=== PATIENT | male | born 1965 | race Hispanic/Latino ===

== ENCOUNTER 2018-03-15 08:21 | Observation (INO) | payer OTHER ==
--- NOTE | 2018-03-15 09:10 | RAD REPORT ---
EXAM DESCRIPTION: RAD - Chest Single View - 03/15/2018 9:02 am CLINICAL HISTORY: CHEST PAIN Chest pain. COMPARISON: No comparisons FINDINGS: Portable technique limits examination quality. The lungs are grossly clear. The heart is normal in size. No displaced fractures. IMPRESSION: No acute intrathoracic process suspected.
[2018-03-15 09:14] LABS: Absolute Lymphocytes (CBC) 1.9 K/uL (0.7-4.9); Absolute Monocytes 0.7 K/uL (0.1-1.3); Absolute Neutrophil 4.8 K/uL (1.8-8.0); Basophils % 1.1 % (0-1.3); Eosinophils % 3.4 % (0-4.4); Hematocrit 50.7 % (39.6-49.0); Lymphocytes % 24.3 % (15.3-44.8); MPV 8.4 fL (7.6-11.3); Monocytes % 9.3 % (3.3-12.3); RBC Red Blood Cell Count 5.78 M/uL (4.33-5.43)
[2018-03-15 09:17] LABS: BUN Blood Urea Nitrogen 12 mg/dL (7-18); Bicarbonate 28 mmol/L (21-32); Glucose Level 102 mg/dL (74-106); NT PRO-BNP 14 pg/mL (<125); Potassium 4.1 mmol/L (3.5-5.1); Sodium Level 140 mmol/L (136-145); Troponin (Emerg Dept Use Only) < 0.02 ng/mL (0.0-0.045)
--- NOTE | 2018-03-15 09:24 | EKG ---
Test Date: 2018-03-15 Test Time: 08:34:40 Can Technician: ALESHA MEASUREMENT RESULTS: Intervals: Rate: 69 RI: 136 QRSD: 90 QT: 372 QTc: 398 [place]: P: 29 RI: 136 QRS: 42 T: 46 INTERPRETIVE STATEMENTS: Normal sinus rhythm Normal ECG No previous ECG available for comparison Electronically Signed On 03-15-18 09:23:46 MARKETING SERVICES COORDINATOR by Thom Licona
--- NOTE | 2018-03-15 10:02 | EDPHYS ---
Physician Documentation [facility] Name: Geoffrey Shrestha Age: 52 yrs Sex: Male : 1965 Arrival Date: 03/15/2018 Time: 08:22 Bed 14 Private MD: ED Physician Nathaniel Darby HPI: 03/15 08:58 This 52 yrs old Male presents to ER via Wheelchair with complaints of Chest rn Pain. 08:58 The patient or guardian reports chest pain that is located primarily in the substernal rn area. Onset: at 07:00. The pain radiates to both arms. Associated signs and symptoms: Pertinent positives: None. Pertinent negatives: abdominal pain, cough, diaphoresis, dizziness, lightheadedness, nausea, near syncope, palpitations, shortness of breath, syncope, vomiting. The chest pain is described as a heaviness, a pressure, squeezing. Duration: The patient or guardian reports a single episode, that is now resolved. Modifying factors: The symptoms are alleviated by nothing. the symptoms are aggravated by activity. Severity of pain: At its worst the pain was moderate in the emergency department the pain has resolved. The patient has experienced similar episodes in the past. REports chest pressure with exertion, relieved with rest, no fever/cough/trauma. Now resolved, reports multiple episodes in past that resolve with rest. . Historical: - Allergies: 08:29 No Known Allergies; sg - Home Meds: 08:29 Flomax Oral for Symptomatic Benign Prostatic Hyperplasia [Active]; sg - PMHx: 08:29 None; sg - PSHx: 08:29 achilles tendon repair; sg - Immunization history:: Adult Immunizations up to date. - Social history:: Smoking status: Patient/guardian denies using tobacco. - Ebola Screening: : Patient negative for fever greater than or equal to 101.5 degrees Fahrenheit, and additional compatible Ebola Virus Disease symptoms Patient denies exposure to infectious person Patient denies travel to an Ebola-affected area in the 21 days before illness onset No symptoms or risks identified at this time. - Family history:: not pertinent. - Hospitalizations: : No recent hospitalization is reported. ROS: 08:58 Constitutional: Negative for fever, chills, and weight loss, Eyes: Negative for injury, rn pain, redness, and discharge, Neck: Negative for injury, pain, and swelling, Cardiovascular: Negative for edema Respiratory: Negative for shortness of breath, cough, wheezing, and pleuritic chest pain, Abdomen/GI: Negative for abdominal pain, nausea, vomiting, diarrhea, and constipation, MS/Extremity: Negative for injury and deformity, Skin: Negative for injury, rash, and discoloration, Neuro: Negative for headache, weakness, numbness, tingling, and seizure. Exam: 08:58 Constitutional: This is a well developed, well nourished patient who is awake, alert, rn and in no acute distress. Head/Face: Normocephalic, atraumatic. Eyes: Pupils equal round and reactive to light, extra-ocular motions intact. Lids and lashes normal. Conjunctiva and sclera are non-icteric and not injected. Cornea within normal limits. Periorbital areas with no swelling, redness, or edema. Cardiovascular: Regular rate and rhythm with a normal S1 and S2. No JVD. No pulse deficits. Respiratory: Lungs have equal breath sounds bilaterally, clear to auscultation. No increased work of breathing, no retractions or nasal flaring. Abdomen/GI: soft, non-tender Skin: Warm, dry with normal turgor. Normal color with no rashes, no lesions, and no evidence of cellulitis. MS/ Extremity: Pulses equal, no cyanosis. Neurovascular intact. Full, normal range of motion. Equal circumference. Neuro: Awake and alert, GCS 15, oriented to person, place, time, and situation. Cranial nerves II-XII grossly intact. Motor strength 5/5 in all extremities. Sensory grossly intact. 09:03 ECG was reviewed by the Attending Physician. rn Vital Signs: 08:29 BP 126 / 93; Pulse 82; Resp 18; Temp 98.4; Pulse Ox 100% on R/A; Weight 109.77 kg (R); sg Height 5 ft. 10 in. (177.80 cm); Pain 0/10; 09:55 BP 124 / 84; Pulse 76; Resp 18; Pulse Ox 99% ; Pain 0/10; ph 11:11 BP 128 / 76; Pulse 74; Resp 18; Temp 98.0; Pulse Ox 100% on R/A; Pain 0/10; ph 08:29 Body Mass Index 34.72 (109.77 kg, 177.80 cm) sg MDM: 08:35 Patient medically screened. rn 09:58 Differential diagnosis: acute myocardial infarction, acute pericarditis, coronary rn artery disease costochondritis, gastroesophageal reflux disease (GERD), pericarditis, pleurisy, stable angina, unstable angina. The patient was not given aspirin in the Emergency Department. Patient reports taking aspirin within the past 24 hours. Data reviewed: vital signs, nurses notes, lab test result(s), EKG, radiologic studies, plain films, and as a result, I will admit patient. Counseling: I had a detailed discussion with the patient and/or guardian regarding: the historical points, exam findings, and any diagnostic results supporting the discharge/admit diagnosis, lab results, radiology results, the need for further work-up and treatment in the hospital. Admission orders: after a detailed discussion of the patient's condition and case, the admit orders are written by me. ED course: Chest pain free, exertional chest pain, will admit for cardiac w/u. Dr. Vincent notified. . 03/15 08:46 Order name: Basic Metabolic Panel; Complete Time: 09:19 rn 03/15 08:46 Order name: CBC with Diff; Complete Time: 09:19 rn 03/15 08:46 Order name: NT PRO-BNP; Complete Time: 09:19 rn 03/15 08:46 Order name: Troponin (emerg Dept Use Only); Complete Time: 09:19 rn 03/15 10:27 Order name: Troponin I EDID 03/15 10:27 Order name: Troponin I EDID 03/15 08:46 Order name: XRAY Chest (1 view); Complete Time: 09:45 rn 03/15 08:46 Order name: EKG; Complete Time: 08:47 rn 03/15 08:46 Order name: Cardiac monitoring; Complete Time: 09:09 rn 03/15 08:46 Order name: EKG - Nurse/Tech; Complete Time: 08:50 rn 03/15 08:46 Order name: IV Saline Lock; Complete Time: 08:50 rn 03/15 10:27 Order name: Echo with Doppler EDID 03/15 10:27 Order name: Troponin I EDID 03/15 10:27 Order name: Troponin I EDID 03/15 08:46 Order name: Labs collected and sent; Complete Time: 08:50 rn 03/15 08:46 Order name: O2 Per Protocol; Complete Time: 08:50 rn 03/15 08:46 Order name: O2 Sat Monitoring; Complete Time: 08:50 rn EC:03 Rate is 69 beats/min. Rhythm is regular. QRS [place] is Normal. [place] interval is normal. QRS rn interval is normal. QT interval is normal. No Q waves. T waves are Normal. No ST changes noted. Clinical impression: Normal ECG. Interpreted by me. Administered Medications: No medications were administered Disposition: 03/15/18 10:02 Hospitalization ordered by Tracy Vincent for Observation. Preliminary diagnosis is Chest pain, unspecified. - Bed requested for Telemetry/MedSurg (observation). - Status is Observation. ph - Condition is Stable. - Problem is new. - Symptoms have improved. UTI on Admission? No Signatures: Dispatcher [employer] EDMS Lilliam Barreto RN RN dw Gay, Steven, RN RN Nathaniel Darby MD MD rn Hall, Patricia, RN RN ph Corrections: (The following items were deleted from the chart) 11:01 10:02 Hospitalization Ordered by Tracy Vincent MD for Observation. Preliminary dw diagnosis is Chest pain, unspecified. Bed requested for Telemetry/MedSurg (observation). Status is Observation. Condition is Stable. Problem is new. Symptoms have improved. UTI on Admission? No. rn 11:45 11:01 03/15/2018 10:02 Hospitalization Ordered by Tracy Vincent MD for Observation. ph Preliminary diagnosis is Chest pain, unspecified. Bed requested for Telemetry/MedSurg (observation). Status is Observation. Condition is Stable. Problem is new. Symptoms have improved. UTI on Admission? No. dw
--- NOTE | 2018-03-15 10:02 | ER ---
Nurse's Notes [facility] Name: Geoffrey Shrestha Age: 52 yrs Sex: Male : 1965 Arrival Date: 03/15/2018 Time: 08:22 Bed 14 Private MD: Diagnosis: Chest pain, unspecified Presentation: 03/15 08:26 Presenting complaint: Patient states: This morning at 0700 was at work and developed sg crushing CP, reports the pain is lessened when he sits down to rest, then increases with the level of activity. Report the [facility] nurse gave PO asa 325 at 0740 this morning before sending him here to the ED to get evaluated. Transition of care: patient was not received from another setting of care. Onset of symptoms was March 15, 2018. Risk Assessment: Do you want to hurt yourself or someone else? Patient reports no desire to harm self or others. Initial Sepsis Screen: Does the patient meet any 2 criteria? No. Patient's initial sepsis screen is negative. Does the patient have a suspected source of infection? No. Patient's initial sepsis screen is negative. Care prior to arrival: Medication(s) given: ASA, 325 mg, x 1. 08:26 Method Of Arrival: Wheelchair sg 08:26 Acuity: SAKINA 3 sg Historical: - Allergies: 08:29 No Known Allergies; sg - Home Meds: 08:29 Flomax Oral for Symptomatic Benign Prostatic Hyperplasia [Active]; sg - PMHx: 08:29 None; sg - PSHx: 08:29 achilles tendon repair; sg - Immunization history:: Adult Immunizations up to date. - Social history:: Smoking status: Patient/guardian denies using tobacco. - Ebola Screening: : Patient negative for fever greater than or equal to 101.5 degrees Fahrenheit, and additional compatible Ebola Virus Disease symptoms Patient denies exposure to infectious person Patient denies travel to an Ebola-affected area in the 21 days before illness onset No symptoms or risks identified at this time. - Family history:: not pertinent. - Hospitalizations: : No recent hospitalization is reported. Screenin:39 Abuse screen: Denies threats or abuse. Nutritional screening: No deficits noted. tw2 Tuberculosis screening: No symptoms or risk factors identified. Fall Risk None identified. Assessment: 08:45 General: Appears in no apparent distress. comfortable, well groomed, Behavior is calm, ph cooperative, appropriate for age, Denies fever, feeling ill. 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 Neuro: Level of Consciousness is awake, alert, obeys commands, Oriented to person, place, time, situation. Cardiovascular: Reports chest pain, palpitations, Denies nausea, shortness of breath, vomiting, Capillary refill < 3 seconds Patient's skin is warm and dry. Rhythm is sinus rhythm Chest pain quality is pressure, squeezing, is located in left anterior chest wall radiates to left back is aggravated by activity, is alleviated by rest, Pt denies pain at this time. Respiratory: Airway is patent Respiratory effort is even, unlabored, Respiratory pattern is regular, symmetrical. Derm: Skin is intact, is healthy with good turgor, Skin is pink, warm \T\ dry. Musculoskeletal: Circulation, motion, and sensation intact. Range of motion: intact in all extremities. 10:00 Reassessment: Patient appears in no apparent distress at this time. Patient and/or ph family updated on plan of care and expected duration. Pain level reassessed. Patient is alert, oriented x 3, equal unlabored respirations, skin warm/dry/pink. Pt resting quietly, awaiting lab and radiology results, VSS. 11:35 Reassessment: Patient appears in no apparent distress at this time. Patient and/or ph family updated on plan of care and expected duration. Pain level reassessed. Patient is alert, oriented x 3, equal unlabored respirations, skin warm/dry/pink. Report called to second floor, pt taken for stress test and will be taken to inpatient room when testing complete Patient denies pain at this time. Vital Signs: 08:29 BP 126 / 93; Pulse 82; Resp 18; Temp 98.4; Pulse Ox 100% on R/A; Weight 109.77 kg (R); sg Height 5 ft. 10 in. (177.80 cm); Pain 0/10; 09:55 BP 124 / 84; Pulse 76; Resp 18; Pulse Ox 99% ; Pain 0/10; ph 11:11 BP 128 / 76; Pulse 74; Resp 18; Temp 98.0; Pulse Ox 100% on R/A; Pain 0/10; ph 08:29 Body Mass Index 34.72 (109.77 kg, 177.80 cm) ED Course: 08:22 Patient arrived in ED. as 08:28 Triage completed. sg 08:29 Arm band placed on. sg 08:33 Placed in gown. Bed in low position. Call light in reach. secured entrance monitor on. Pulse ox tw2 on. NIBP on. 08:35 Nathaniel Darby MD is Attending Physician. rn 08:36 Citlali Stanford RN is Primary Nurse. ph 08:40 EKG done, by electric meter technician. reviewed by Nathaniel Darby MD. at1 08:40 Patient maintains SpO2 saturation greater than 95% on room air. tw2 08:55 Inserted saline lock: 22 gauge in left antecubital area, using aseptic technique. Blood tw2 collected. 08:59 X-ray completed. Portable x-ray completed in exam room. Patient tolerated procedure sw well. 09:05 XRAY Chest (1 view) In Process Unspecified. EDMS 10:02 Tracy Vincent MD is Hospitalizing Provider. rn 11:28 No provider procedures requiring assistance completed. Patient admitted, IV remains in ph place. Administered Medications: No medications were administered Outcome: 10:02 Decision to Hospitalize by Provider. rn 11:44 Admitted to Tele accompanied by tech, family with patient, via wheelchair. ph 11:44 Condition: stable 11:45 Patient left the ED. ph Signatures: Dispatcher [employer] EDMS Brock Cameron, RN RN Lidya Lopez Roman, MD MD rn Gonzales, Amanda, dependency case manager EKG Tat1 Citlali Stanford, RN RN Dania Tobias Tara, RN RN tw2
[2018-03-15] MEDS ORDERED: ACETAMINOPHEN 500 MG TAB PO PRN (11:59)
[2018-03-15] MEDS ORDERED: REGADENOSON 0.4 MG/5 ML SYR IV ONE (12:05)
--- NOTE | 2018-03-15 13:35 | RAD REPORT ---
EXAM DESCRIPTION: NM - Rest Stress Cardiac Imaging - 03/15/2018 1:29 pm CLINICAL HISTORY: CP Chest pain. COMPARISON: No comparisons TECHNIQUE: The patient was administered approximately 10mCi of Tc 99m Sestamibi prior to resting SPE CT imaging of the heart. The patient was then administered approximately 30 mCi of Tc 99m Sestamibi f ollowing exercise or pharmacologic stress. Multiplanar SPECT images were reviewed. FINDINGS: No stress induced ischemic defect is seen to suggest stress induced ischemia. No fixed def ect is seen to suggest hibernating myocardium or scarred myocardium. The end diastolic volume is 141 ml, the end systolic volume is 71 ml, and the ejection fraction is 50 %. IMPRESSION: No stress induced ischemia.
--- NOTE | 2018-03-15 14:36 | P.HP ---
Certification for Inpatient Patient admitted to: Observation With expected LOS: <2 Midnights Patient will require the following post-hospital care: None Practitioner: I am a practitioner with admitting privileges, knowledge of patient current condition, hospital course, and medical plan of care. Services: Services provided to patient in accordance with Admission requirements found in Title 42 Section 412.3 of the Code of Federal Regulations Patient History Date of Service: 03/15/18 History of Present Illness: 52-year-old male with no significant past medical history who presented to the ED complaining of having chest pain that started this morning while he was walking. Patient stated that he has had similar episodes in the past were he noticed that he was having palpitations and then started having squeezing chest pain. At that time he would go to his clinic at work his blood pressure would is normal and heart rate was normal and thus he never followed up with anybody. Today however he stated that the chest pain was back and squeezing in nature and thus he decided to come to the ER to get a further checked out. Patient is positive for smoking for over 30 years along with all 4-5 beers a day. No other complaints to offer at this time. Denies having any shortness of breath abdominal pain nausea vomiting or any other associated symptoms. Allergies No Known Allergies Allergy (Unverified 03/15/18 11:58) Home Medications: Tamsulosin [Flomax*] 0.4 mg PO DAILY 03/15/18 - Past Medical/Surgical History Has patient received pneumonia vaccine in the past: Yes Diabetic: No Past Medical History: Reviewed- Non-Contributory Past Surgical History: Reviewed- Non-Contributory -: achiles tendon sx - Family History Family History: Reviewed- Non-Contributory - Family History Father History Unknown: Yes Mother -: Other (see notes) Notes: car accident - Social History Smoking Status: Current some day smoker Counseled patient to stop smoking for: more than 10 minutes Smoking therapy provided: Yes Patient receptive to therapy: Yes Alcohol use: Yes CD- Drugs: No Caffeine use: Yes Place of Residence: Home Review of Systems 10-point ROS is otherwise unremarkable Physical Examination - Vital Signs Temperature: 98.0 F Blood Pressure: 128/76 Pulse: 74 Respirations: 18 - Physical Exam General: Alert, In no apparent distress HEENT: Atraumatic, PERRLA, Mucous membr. moist/pink, EOMI, Sclerae nonicteric Neck: Supple, 2+ carotid pulse no bruit, No LAD, Without JVD or thyroid abnormality Respiratory: Clear to auscultation bilaterally, Normal air movement Cardiovascular: Regular rate/rhythm, Normal S1 S2 Gastrointestinal: Normal bowel sounds, No tenderness Musculoskeletal: No tenderness Integumentary: No rashes Neurological: Normal gait, Normal speech, Normal strength at 5/5 x4 extr, Normal tone, Normal affect Lymphatics: No axilla or inguinal lymphadenopathy - Studies Laboratory Data (last 24 hrs) 03/15/18 08:50: WBC 7.8, Hgb 17.5, Hct 50.7 H, Plt Count 183 03/15/18 08:50: Sodium 140, Potassium 4.1, BUN 12, Creatinine 0.85, Glucose 102 Assessment and Plan - Problems (Diagnosis) (1) Chest pain Current Visit: Yes Status: Acute Plan: Atypical Chest pain. Risk factor + tobacco use and + alcohol Use -ASA, BB and Lipitor for now -ECHO and Stress today -If negative can be discharged home and workup for GERD Qualifiers: Chest pain type: other chest pain Qualified Code(s): R07.89 - Other chest pain; R07.8 - Other chest pain (2) Tobacco abuse Current Visit: Yes Status: Chronic Plan: Smoking cessation provided (3) Alcohol use Current Visit: Yes Status: Chronic Discharge Plan: Home Plan to discharge in: 48 Hours - Advance Directives Does patient have a Living Will: No Does patient have a Durable POA for Healthcare: No - Code Status/Comfort Care Code Status Assessed: Yes Critical Care: No
--- NOTE | 2018-03-15 17:05 | ECHO ---
HEIGHT: 5 ft 10 in WEIGHT: 242 lb 0 oz DATE OF STUDY: 03/15/[address]: Tracy Vincent MD 2-DIMENSIONAL: YES M.MODE: YES DOPPLER: YES COLOR FLOW: YES TDS: PORTABLE: DEFINITY: BUBBLE STUDY: DIAGNOSIS: CHEST PAIN WITH SHORTNESS OF BREATH. CARDIAC HISTORY: CATHERIZATION: NO SURGERY: NO PROSTHETIC VALVE: NO PACEMAKER: NO MEASUREMENTS (cm) DIASTOLIC (NORMALS) SYSTOLIC (NORMALS) IVSd 1.1 (0.6-1.2) LA Diam 4.4 (1.9-4.0) LVEF 67% LVIDd 5.7 (3.5-5.7) LVIDs 3.5 (2.0-3.5) %FS 38% LVPWd 1.1 (0.6-1.2) Ao Diam 3.8 (2.0-3.7) 2 DIMENSIONAL ASSESSMENT: RIGHT ATRIUM: NORMAL LEFT ATRIUM: DILATED RIGHT VENTRICLE: NORMAL LEFT VENTRICLE: NORMAL TRICUSPID VALVE: NORMAL MITRAL VALVE: NORMAL PULMONIC VALVE: NORMAL AORTIC VALVE: NORMAL PERICARDIAL EFFUSION: NONE AORTIC ROOT: NORMAL LEFT VENTRICULAR WALL MOTION: NORMAL DOPPLER/COLOR FLOW: MILD MITRAL REGURGITATION. COMMENTS: NORMAL LEFT VENTRICULAR EJECTION FRACTION. DILATED LEFT ATRIUM. MILD MITRAL REGURGITATION. TECHNOLOGIST: RICH GONZALEZ
--- NOTE | 2018-03-15 17:25 | TREADPHA ---
DX: CHEST PAIN/SHORTNESS OF BREATH. Date of Study: 03/15/2018 Ht: 5 10 Wt: 242 lb 0 oz Consulting Physician: MALENA MEDICATIONS: TYLENOL HISTORY: 52 YEAR MALE, COMPLAINTS OF CHEST PAIN. HISTORY: TENDON SX, BENIGN PROSTATIC HYPERPLASIA, SMOKER PACK DAILY, DRINKS FIVE BEERS DAILY. PHYSICIAL EXAMINATION: RESTING B.P.: 134/104 RESTING H.R.: 55 RESTING EKG: SINUS BRADYCARDIA OTHERWISE NORMAL. PROTOCOL: LEXISCAN EXERCISE TIME: 3:30 B.P. AT PEAK STRESS: 138/101 IMPRESSION: LEXISCAN INJECTED, FOLLOWED BY CARDIOLITE PER PROTOCOL, SEE NUCLEAR MEDICINE REPORT. NO SUPRAVENTRICULAR TACHYCARDIA. NO VENTRICULAR TACHYCARDIA. NO PREMATURE ATRIAL COMPLEXS. NO PREMATURE VENTRICULAR COMPLEXS. PATIENT REPORTED NO CHEST PAIN PRIOR TO PROCEDURE. PATIENT REPORTED CHEST PAIN 6/10 DURING PROCEDURE. PATIENT REPORTED NO CHEST PAIN DURING RECOVERY, CHEST PAIN RESOLVED. NON-DIAGNOSTIC ELECTROCARDIOGRAM WITH LEXISCAN STRESS.
[2018-03-15 17:33] LABS: HDL Cholesterol 34 mg/dL (40-60); LDL Cholesterol, Calculated 72 (<130); Troponin I < 0.02 ng/mL (0.0-0.045)
[2018-03-16] MEDS ORDERED: ASPIRIN EC 81 MG TAB PO SCH (09:00)
[2018-03-16] MEDS ORDERED: TAMSULOSIN 0.4 MG SR CAP PO SCH (09:00)
== END 2018-03-15 19:18 | disposition home or self-care (01) ==
LOC: ER 08:21 → ERHOLD 10:21 → 2ND 11:48
PROVIDERS: ADMIT Family Medicine; ATTEND Family Medicine
DX: R07.89 Other chest pain (principal); F17.210 Nicotine dependence, cigarettes, uncomplicated; Z72.89 Other problems related to lifestyle
CPT/HCPCS: 36415; 71045; 78452; 80048; 80061; 83880; 84484; 85025; 93005; 93017; 93306; 99285; A9500; G0378; J2785